=== PATIENT | female | born 1960 | race Caucasian/White ===

== ENCOUNTER → 2017-05-26 | Outpatient (CLI) | payer BC ==
--- NOTE | 2017-05-26 17:54 | Diagnostic Imaging Report ---
INDICATION: Left lower quadrant pain for six days, ankles and knees are swollen. COMPARISON STUDY: None. FINDINGS: Frontal and lateral views of the lumbar spine demonstrate no fracture or subluxation. Disc spaces are of normal width. Facet arthropathy is present at L4-L5 and L5-S1. There is questionable pars defect at L5 without subluxation. Increased stool is seen throughout the colon. IMPRESSION: 1. Constipation. 2. Facet arthropathy with a questionable pars defect at L5. No subluxation or disc space narrowing is present. Dictated by: Dictated on workstation # [id number]
--- NOTE | 2017-05-26 17:56 | Diagnostic Imaging Report ---
INDICATION: Left lower quadrant pain for six days, history of stones and hematuria. COMPARISON STUDIES: Lumbar spine from today. FINDINGS: A supine and upright view of the abdomen demonstrates the lung bases to be clear. A large amount stool is seen throughout the colon. Small bowel gas pattern appears normal. Surgical clips are seen in the gallbladder fossa. IMPRESSION: Constipation. Dictated by: Dictated on workstation # [id number]
[2017-05-26 18:00] LABS: BILIRUBIN,URINE NEGATIVE (NEGATIVE); CLARITY,URINE CLEAR; COLOR,URINE YELLOW; GLUCOSE, URINE (UA) NEGATIVE (NEGATIVE); KETONES,URINE NEGATIVE (NEGATIVE); LEUKOCYTE ESTERASE ,URINE NEGATIVE (NEGATIVE); NITRITE,URINE NEGATIVE (NEGATIVE); PH,URINE 6.5 (5-9); PROTEIN,URINE NEGATIVE (NEGATIVE); UROBILINOGEN,URINE NORMAL (NORMAL)
[2017-05-26 18:08] LABS: BACTERIA,URINE NEGATIVE /HPF
== END ==
LOC: RAD 17:18
PROVIDERS: ATTEND Physician Assistant
DX: K59.00 Constipation, unspecified (principal); M54.12 Radiculopathy, cervical region; M46.86 Other specified inflammatory spondylopathies, lumbar region
CPT/HCPCS: 72100; 74019; 81000

== ENCOUNTER → 2017-06-01 | Outpatient (CLI) | payer BC ==
--- NOTE | 2017-06-01 13:45 | Diagnostic Imaging Report ---
PROCEDURE: MRI lumbar spine. TECHNIQUE: Multiplanar, multisequence MRI of the lumbar spine was performed without contrast. INDICATION: Low back pain. FINDINGS: Lumbar spinal curvature and alignment are unremarkable. Vertebral body heights are maintained. There is desiccation of lumbar discs from L2-S1. Conus medullaris is unremarkable at the T12 level. There is asymmetric leftward bulging of the L2-3 disc resulting in slight left neural foraminal stenosis. At the L3-4 level, there is mild diffuse disc bulging which is mildly eccentric toward the left with slight left neural foraminal stenosis. At L4-5, there is also mild leftward bulging of the disc without significant spinal or neural foraminal stenosis. At L5-S1, mild disc bulging results in minimal left neural foraminal stenosis. IMPRESSION: There is asymmetric leftward bulging of the L2-3, L3-4 and L5-S1 disc resulting in minimal to mild left neural foraminal stenosis. No central spinal stenosis is identified. There is no evidence of marrow signal abnormality to indicate fracture or other acute abnormality. Dictated by: Dictated on workstation # [id number]
== END ==
LOC: RAD 10:49
PROVIDERS: ATTEND Physician Assistant
DX: M51.27 Other intervertebral disc displacement, lumbosacral region (principal)
CPT/HCPCS: 72148

== ENCOUNTER → 2018-11-10 | Outpatient (CLI) | payer BC ==
--- NOTE | 2018-11-15 18:38 | Diagnostic Imaging Report ---
INDICATION: Routine screening. Comparison is made with prior mammograms from 06/01/2017 and 03/25/2016. 2-D and 3-D bilateral screening mammography was performed. The current study was also evaluated with a Computer Aided Detection (CAD) system. 3-D tomosynthesis was also performed and reviewed. FINDINGS: Both breasts are heterogeneously dense, limiting the sensitivity of mammography. There is a density in the posterior right breast on the MLO view. No corresponding density on the CC view is seen. Additional views are recommended. There also is some slight increased density in the medial aspect of the left breast retroareolar region on the CC view. Additional views of this area are recommended as well. No suspicious calcifications are identified. Axillae are unremarkable. IMPRESSION: Bilateral breast densities. Additional views are recommended for further evaluation. ACR BI-RADS Category 0: Incomplete. (Needs additional imaging evaluation). Result letter will be mailed to the patient. Note: At least 10% of breast cancer is not imaged by mammography. Dictated by: Dictated on workstation # [id number]
== END ==
LOC: RAD 09:40
PROVIDERS: ATTEND Obstetrics & Gynecology
DX: Z12.31 Encounter for screening mammogram for malignant neoplasm of breast (principal)
CPT/HCPCS: 77067

== ENCOUNTER 2020-02-05 05:37 | Outpatient (RCR) | payer BC ==
[~2020-02-05] VITALS: Ht 165 cm; Wt 61.3 kg
[2020-02-05] MEDS ORDERED: SPIR50TA4 PO (11:18)
[2020-02-05] MEDS ORDERED: THYR60TA2 PO (11:18)
[2020-02-05] MEDS ORDERED: POTA10CA43 PO (11:18)
[2020-02-05] MEDS ORDERED: ACYC400T PO (11:18)
[2020-02-05] MEDS ORDERED: MELA10TA2 PO (11:18)
[2020-02-05] MEDS ORDERED: TOPI50TA13 PO (11:18)
[2020-02-05] MEDS ORDERED: ESTR2TAB PO (11:18)
== END 2020-02-05 12:54 | disposition home or self-care (01) ==
LOC: PREOP 05:37
PROVIDERS: ATTEND Urology
DX: Z01.818 Encounter for other preprocedural examination (principal)

== ENCOUNTER → 2020-02-05 | Outpatient (CLI) | payer BC ==
[~2020-02-05] MED LIST: ACYC400T PO; ESTR2TAB PO; MELA10TA2 PO; POTA10CA43 PO; SPIR50TA4 PO; THYR60TA2 PO; TOPI50TA13 PO
== END ==
LOC: LABNPT 06:03
PROVIDERS: ATTEND Urology
DX: Z01.812 Encounter for preprocedural laboratory examination (principal); Z53.9 Procedure and treatment not carried out, unspecified reason

== ENCOUNTER 2020-02-12 06:37 | Day surgery (SDC) | payer BC ==
[~2020-02-12] VITALS: Ht 165 cm; Wt 61.3 kg
[2020-02-12] VITALS (10 sets, daily range): BP systolic 96–127; BP diastolic 59–92
[2020-02-12] MEDS ORDERED: LIDOCAINE/EPI 1%-1:100,000 (XYLOCAINE) 20ML ONE (07:18)
[2020-02-12] MEDS ORDERED: ESTRADIOL VAGINAL CREAM 42.5 GM (ESTRACE) VG ONE (07:18)
[2020-02-12] MEDS ORDERED: proPOfol 200 MG/20 ML (DIPRIVAN) VIAL IV ONE (07:30)
[2020-02-12] MEDS ORDERED: MIDAZOLAM 2 MG/2 ML (VERSED) VIAL ONE (07:30)
[2020-02-12] MEDS ORDERED: cefTRIAXone FOR IV USE 1,000 MG in WATER (STERILE) FOR INJECTION 10 ML IV ONE (07:30)
[2020-02-12] MEDS ORDERED: LIDOCAINE PF 2% 5 ML (XYLOCAINE) VIAL ONE (07:30)
[2020-02-12] MEDS ORDERED: fentaNYL INJECTION 100 MCG/2 ML AMP ONE (07:30)
[2020-02-12] MEDS ORDERED: ROCURONIUM 10 MG/ML 5 ML SYRINGE IV ONE (07:37)
[2020-02-12] MEDS ORDERED: SEVOFLURANE (ULTANE) 15 ML INHAL SOLN ONE (07:37)
[2020-02-12] MEDS ORDERED: ONDANSETRON 4 MG/2 ML (SDV) Z0FRAN ONE (07:37)
--- NOTE | 2020-02-12 08:00 | Progress Note-Pre Operative ---
Pre-Operative Progress Note H&P Reviewed The H&P was reviewed, patient examined and no changes noted. Date Seen by Provider: Feb 12, 2020 Time Seen by Provider: 08:00 Date H&P Reviewed: Feb 12, 2020 Time H&P Reviewed: 08:00 Pre-Operative Diagnosis: CYSTOCELE AND SARINA JOCELYN ARAIZA MD Feb 12, 2020 08:00
[2020-02-12] MEDS: LACTATED RINGERS 1,000 ML IV PRN ×3 (08:02→15:42)
[2020-02-12] MEDS ORDERED: LACTATED RINGERS 1,000 ML IV SCH (08:04)
--- NOTE | 2020-02-12 08:04 | Progress Note-Post Operative ---
Post-Operative Progess Note Surgeon (s)/Painter Maintenance (s) Surgeon JOCELYN ARAIZA MD Painter Maintenance: NONE Pre-Operative Diagnosis CYSTOCELE AND SARINA Post-Operative Diagnosis SAME Procedure & Operative Findings Date of Procedure 02/12/20 Procedure Performed/Findings ANTERIOR REPAIR AND PVS WITH CYSTOSCOPY Anesthesia Type GENERAL Estimated Blood Loss Estimated blood loss (mL): LESS THAN 50CC Specimens/Packing Specimens Removed NONE Packing: ESTRACE 2GM VAGINAL PACK JOCELYN ARAIZA MD Feb 12, 2020 08:04
[2020-02-12] MEDS ORDERED: MEPERIDINE (DEMEROL) INJ 50 MG/ML IVP ONE (08:30)
[2020-02-12] MEDS ORDERED: morphine INJ 10 MG/ML 1ML (SYR OR VIAL) IVP ONE (08:30)
[2020-02-12] MEDS ORDERED: fentaNYL INJECTION 100 MCG/2 ML AMP IVP ONE (08:30)
--- NOTE | 2020-02-12 09:55 | NUR ---
HECTOR HWANG admitted to room 3306-1 VIA PT BED ACC BY HAYDEE BUCKLEY ENVIRONMENTAL HEALTH TECHNOLOGIST AFTER AN ANTERIOR REPAIR WITH PUBOVAGINAL SLING, AND CYSTOSCOPY TODAY BY DR. ARAIZA. HECTOR HWANG introduced to surroundings, call light, bed controls, phone, TV, temperature control, lights, meal times, smoking policy, visitor policy, side rail policy, bathrooms and showers. Patient Rights given to patient in the handbook.
--- NOTE | 2020-02-12 10:10 | NUR ---
ASSESSMENT COMPLETED. VSS. DENIES PAIN. VAGINAL PACK IN PLACE WITH TAIL VISIBLE. NO BLEEDING AT THIS TIME. ORIENTED TO CALL LIGHT OPERATION AND MENU.
[2020-02-12] MEDS: ONDANSETRON 4 MG/2 ML (SDV) Z0FRAN IVP PRN ×2 (10:15→23:51)
[2020-02-12] MEDS ORDERED: KETOROLAC 30 MG/ML VIAL ONE (11:18)
[2020-02-12] MEDS: KETOROLAC 30 MG/ML VIAL IV PRN ×2 (11:25→17:13)
--- NOTE | 2020-02-12 11:54 | OPERATIVE REPORT ---
DATE OF SERVICE: 02/12/2020 PREOPERATIVE DIAGNOSIS: Cystocele with stress urinary incontinence. POSTOPERATIVE DIAGNOSIS: Cystocele with stress urinary incontinence. OPERATION PERFORMED: Anterior repair with pubovaginal sling and cystoscopy. SURGEON: Alfredo Araiza MD. ANESTHESIA: General. COMPLICATIONS: None. DESCRIPTION OF PROCEDURE: Under satisfactory general anesthesia, the patient in extended lithotomy position genitalia, abdomen and thigh were prepped and draped in the usual sterile fashion with a separate vaginal prep. The Powell catheter was inserted draining the bladder and connected to gravity. The anterior vaginal wall was infiltrated with lidocaine and 2% epinephrine and a midline incision was made just a centimeter proximal to the urethral meatus and carried down. The mucosa was dissected off the underlying fascia. The fascia was approximated with interrupted 2-0 Vicryl. Then, the [employer] One introducer was used and I went under the ischial pubic ramus and released the anchor into the obturator internus muscle using the described technique. In a similar fashion, I inserted the one on the right side. The sling was sitting nicely under the mid urethra with no tension, no twist and passage of a curved hemostat easily between it and the underlying tissue. I removed the Powell catheter and performed cystoscopy to confirm the integrity of the bladder, ureteral orifices and urethra with no foreign body and presence of the sling under the mid urethra. I left the bladder half full, removed the cystoscope and performed a manual Valsalva maneuver that was negative. I reinserted the Powell catheter draining again clear fluid. The excess vaginal mucosa was sharply excised and then the edges were approximated with a running 2-0 Vicryl Rapide type suture. Two grams Estrace vaginal pack was inserted. Estimated blood loss was less than 50 mL, none of which was replaced. Needle, sponge, instrument count correct x2. The patient tolerated the procedure and anesthesia well and was sent to recovery room in a stable condition. Job ID: [id number] DocumentID: [id number] Dictated Date: 02/12/2020 09:03:24 [place] Senior Specialist Date: 02/12/2020 11:54:06 Dictated By: ALFREDO ARAIZA MD [facility]
--- NOTE | 2020-02-12 12:00 | NUR ---
HAVING TO MANIPULATE CATHETER TO DRAIN BETTER. CATHETER DEVICE REPLACED.
[2020-02-12] MEDS: THYROID (ARMOUR) 60 MG TABLET PO SCH (12:51)
[2020-02-12] MEDS: KCL 10 MEQ TAB (MICRO K) PO SCH (12:51)
[2020-02-12] MEDS: ACYCLOVIR 400 MG TABLET (ZOVIRAX) PO SCH ×2 (12:52→21:54)
[2020-02-12] MEDS: ESTRADIOL 1 MG TAB (ESTRACE) PO SCH (12:52)
--- NOTE | 2020-02-12 13:06 | NUR ---
ULTRAM 50 MG P.O. FOR C/O PELVIC PAIN/PRESSURE.
[2020-02-12] MEDS: SPIRONOLACTONE 25 MG (ALDACTONE) TAB PO SCH (13:12)
[2020-02-12] MEDS: toPIRamate 25 MG (TOPAMAX) TAB PO SCH ×2 (13:12→21:54)
--- NOTE | 2020-02-12 16:00 | NUR ---
GOOD URINE OUTPUT. TAKING P.O. FLUIDS WELL.
--- NOTE | 2020-02-12 18:15 | NUR ---
ASSISTED UP TO THE SIDE OF THE BED. THIGH SCDS OFF. PT PERSPIRING. DOING WELL. STATES STANDING AT SIDE OF BED FELT BETTER FAR PELVIC PRESSURE.
[2020-02-12] MEDS ORDERED: MELATONIN 10 MG TABLET PO SCH (21:00)
[2020-02-13] MEDS: KETOROLAC 30 MG/ML VIAL IV PRN ×2 (00:39→05:48)
[2020-02-13] MEDS: THYROID (ARMOUR) 60 MG TABLET PO SCH (05:48)
[2020-02-13 05:55] VITALS: BP 110/67
--- NOTE | 2020-02-13 06:59 | Anesthesia-General Post-Op ---
General Patient Condition Mental Status/LOC: Same as Preop Cardiovascular: Satisfactory Nausea/Vomiting: Absent Respiratory: Satisfactory Pain: Controlled Complications: Absent Post Op Complications Complications None Follow Up Care/Instructions Patient Instructions None needed. Anesthesia/Patient Condition Patient Condition Patient is doing well, no complaints, stable vital signs, no apparent adverse anesthesia problems. No complications reported per nursing. D/C home per [facility] Criteria: Yes ALFONSO IRBY CRNA Feb 13, 2020 06:59
[2020-02-13] MEDS ORDERED: LEVOFLOXACIN 250 MG/50 ML IVPB 50 ML IV SCH (08:04)
[2020-02-13 08:45] VITALS: BP 108/60
--- NOTE | 2020-02-13 08:45 | NUR ---
A.M. ASSESSMENT COMPLETED. VSS. DR. ARAIZA IN TO SEE PT. PLAN FOR DISCHARGE.
[2020-02-13] MEDS: ACYCLOVIR 400 MG TABLET (ZOVIRAX) PO SCH (09:08)
[2020-02-13] MEDS: ESTRADIOL 1 MG TAB (ESTRACE) PO SCH (09:08)
[2020-02-13] MEDS: SPIRONOLACTONE 25 MG (ALDACTONE) TAB PO SCH (09:08)
[2020-02-13] MEDS: KCL 10 MEQ TAB (MICRO K) PO SCH (09:08)
[2020-02-13] MEDS: toPIRamate 25 MG (TOPAMAX) TAB PO SCH (09:08)
--- NOTE | 2020-02-13 09:10 | Progress Note - Urology ---
Progress Note-Urology Progress Notes/Assess & Plan Progress/Assessment & Plan DOING WELL POSTOP. NO COMPLAINTS. DAS OUT. HAS NOT VOIDED YET. DRY. HAPPY Final Diagnosis INCONTINENCE AND CYSTOCELE JOCELYN ARAIZA MD Feb 13, 2020 09:10
--- NOTE | 2020-02-13 09:13 | Discharge Inst-Urology ---
Discharge Inst-Urology Reconcile Patient Problems Problems Reviewed?: Yes Final Diagnosis CYSTOCELE AND SARINA Patient Instructions/Follow Up Plan/Assessment/Instructions Please make appointment to been seen in office in 2 weeks. REST till then Keep bowels soft and moving Showers, no bath Increase oral fluids for 48 hours and then as needed. Diet as tolerated. If questions or concerns contact your physician Or seek help at emergency department. JOCELYN ARAIZA MD Feb 13, 2020 09:13
--- NOTE | 2020-02-13 10:54 | NUR ---
DR. ARAIZA NOTIFIED OF BLADDER SCAN OF 21 MLS AFTER 100 ML VOID. PLAN FOR DISCHARGE.
[2020-02-13] MEDS ORDERED: TRM50T PO (11:13)
[2020-02-13] MEDS ORDERED: NITR-65 PO (11:13)
--- NOTE | 2020-02-13 11:30 | NUR ---
DISCHARGE INSTRUCTIONS REVIEWED WITH COPY TO PT. STATES UNDERSTANDING OF ALL INSTRUCTIONS AND NEED TO F/U SCHEDULED AND NEEDED.
[2020-02-13 11:45] VITALS: BP 108/60
--- NOTE | 2020-02-13 11:45 | NUR ---
DISMISSED AMB FROM [facility] IN STABLE CONDITION TO AWAITING FAMILY CAR ACC BY JENNY MONTE RN.
== END 2020-02-13 11:45 | disposition home or self-care (01) ==
LOC: SDC 06:37 → WS 09:52 → SDC 02-13 11:45
PROVIDERS: ATTEND Urology
DX: N81.10 Cystocele, unspecified (principal); N39.3 Stress incontinence (female) (male); E03.9 Hypothyroidism, unspecified; K21.9 Gastro-esophageal reflux disease without esophagitis; K58.9 Irritable bowel syndrome, unspecified; Z79.899 Other long term (current) drug therapy
CPT/HCPCS: 87081; 94664

== ENCOUNTER → 2020-09-16 | Outpatient (CLI) | payer BC ==
[~2020-09-16] MED LIST changes: -ACYC400T PO; +ACYC400T21 PO; +NITR-65 PO; +TRM50T PO
== END ==
LOC: RAD 08:45
PROVIDERS: ATTEND Obstetrics & Gynecology
DX: Z12.31 Encounter for screening mammogram for malignant neoplasm of breast (principal)
CPT/HCPCS: 77063; 77067

== ENCOUNTER → 2021-10-21 | Outpatient (CLI) | payer OTHER ==
[~2021-10-21] MED LIST changes: -ESTR2TAB PO; +ESTR2TAB3 PO
--- NOTE | 2021-10-21 10:56 | Diagnostic Imaging Report ---
EXAMINATION: Lumbar spine MRI without contrast from 10/21/2021. TECHNIQUE: Multiplanar, multisequence MRI of the lumbar spine was performed without contrast. INDICATION: Low back pain with radiation into the left leg. Left leg numbness x3 weeks. No specific injuries. COMPARISON: 06/01/2017. FINDINGS: There is normal height and alignment of the vertebral bodies. Tip of the conus is unremarkable in appearance and location. L1-L2: There is bilateral facet hypertrophy. No central stenosis. Neural foramina are patent. L2-L3: There is a prominent left paracentral disc extrusion with disc material extending inferiorly along the posterior left border of the L3 vertebral body. This extends into the left lateral recess, likely encroaching upon the transiting left nerve root. This finding is new since the previous examination. There is secondary mild central stenosis. There is bilateral facet hypertrophy. There is moderate left and [id number] right neural foraminal stenosis. L3-L4: There is intervertebral disc space narrowing and disc desiccation. There is bilateral facet and ligamentum flavum hypertrophy. There is a broad-based bulging disc, flattening the ventral thecal sac. No central stenosis. There is moderate left and mild right neural foraminal narrowing. L4-L5: There is intervertebral disc space narrowing and disc desiccation. There is bilateral facet and ligamentum flavum hypertrophy. There is a left paracentral broad-based bulging disc containing a left paracentral annular tear. There is no central narrowing. There is [id number]-lv-yxpqqvxa bilateral neural foraminal stenosis, left greater than right. L5-S1: There is bilateral facet hypertrophy. There is a left paracentral disc protrusion. This extends towards the left neural foramen abutting the exiting left nerve root. Encroachment is not excluded. There is moderate left neural foraminal narrowing. The right neural foramen and central canal are patent. Visualized intra-abdominal structures are unremarkable. IMPRESSION: 1. New left paracentral large disc extrusion at the L2-L3 level, likely encroaching upon the transiting left nerve root. There is secondary mild central stenosis with [id number]-zr-phrmty left neural foraminal narrowing. Other degenerative findings, as detailed above. Dictated by: Dictated on workstation # [id number]
== END ==
LOC: RAD 08:00
PROVIDERS: ATTEND Physician Assistant
DX: M51.36 Other intervertebral disc degeneration, lumbar region (principal); M48.061 Spinal stenosis, lumbar region without neurogenic claudication
CPT/HCPCS: 72148

== ENCOUNTER 2021-10-28 20:53 | Emergency (ER) | payer OTHER ==
[~2021-10-28] VITALS: Ht 165.1 cm; Wt 77.0 kg
[2021-10-28] MEDS ORDERED: KETOROLAC 30 MG/ML VIAL IM ONE (21:15)
[2021-10-28] MEDS ORDERED: ORPHENADRINE 60 MG/2 ML (NORFLEX) AMP (ED ONLY) IM ONE (21:15)
--- NOTE | 2021-10-28 21:15 | ED Back Pain ---
General Chief Complaint: Back Problems Stated Complaint: BACK PAIN Nursing Triage Note: PT AMB TO ED BY POV WITH C/O LOW BACK AND L LEG PAIN X 3 WKS, REPORTS PAIN 10/10 AND NUMBNESS IN LLE. DENIES INJURY AND REPORTS PAIN HAS INCREASED GRADUALLY OVER 3 WKS. PT HAS SEEN DR. FARR AND HAD MRI DONE LAST WEEK, IS SUPPOSED TO FOLLOW UP WITH NEURO. Source of Information: Patient Exam Limitations: No Limitations History of Present Illness Date Seen by Provider: Oct 28, 2021 Time Seen by Provider: 21:14 Initial Comments Patient is a 60-year-old female who presents the ED with low back pain and left leg pain. She reports a pain that radiates to her left knee over the past 2 weeks. She gets intermittent sharp shooting pain to her toes over the past 3 weeks. No fall. She had an outpatient MRI 2 days ago prescribed by her primary care physician Dr. Patterson that was positive for new left paracentral large disc extrusion at the L2-L3 level likely encroaching upon the transitioning left nerve root. Secondary mild central stenosis with moderate to severe left neural foraminal narrowing. She is currently on treatment tramadol and lidocaine patch, Zanaflex without much improvement. She denies of any bowel or urine incontinence or saddle paresthesia. She is currently working on following up with neurosurgery. She is requesting pain management at this time. Denies of any fever, weight loss, drug use, nausea, vomiting, diarrhea or fever. Allergies and Home Medications Allergies Coded Allergies: No Known Drug Allergies (Unverified , 02/05/20) Patient Home Medication List Home Medication List Reviewed: Yes Acyclovir (Acyclovir) 400 Mg Tablet, 400 MG PO BID, (Reported) Entered as Reported by: DONIS REID on 02/05/20 1118 Estradiol (Estradiol Tablet) 2 Mg Tablet, 2 MG PO DAILY, (Reported) Entered as Reported by: DONIS REID on 02/05/20 1118 Hydrocodone/Acetaminophen (Hydrocodone-Acetamin 7.5-325) 7.5 Mg-325 Mg Tablet, 1 EACH PO Q4H Prescribed by: JAME PIERRE on 10/28/21 2241 Melatonin (Melatonin) 10 Mg Tablet, 10 MG PO DAILY, (Reported) Entered as Reported by: DONIS REID on 02/05/20 111 Methylprednisolone (Medrol Dose pack) 4 Mg Tab, 4 MG PO UD Prescribed by: JAME PIERRE on 10/28/212240 Nitrofurantoin Monohyd/M-Cryst (Macrobid 100 mg Capsule) 100 Mg Capsule, 1 TAB PO BID Prescribed by: JENNY MONTE on 02/13/20 111 Potassium Chloride (Potassium Chloride) 10 Meq Capsule.er, 10 MEQ PO DAILY, (Reported) Entered as Reported by: DONIS REID on 02/05/201117 Spironolactone (Spironolactone) 50 Mg Tablet, 50 MG PO DAILY, (Reported) Entered as Reported by: DONIS REID on 02/05/201117 Thyroid,Pork (Swan Thyroid) 60 Mg Tablet, 60 MG PO DAILY, (Reported) Entered as Reported by: DONIS REID on 02/05/201117 Topiramate (Topiramate) 50 Mg Tablet, 50 MG PO BID, (Reported) Entered as Reported by: DONIS REID on 02/05/201117 Tramadol HCl (Tramadol HCl) 50 Mg Tablet, 50 MG PO Q4H PRN for PAIN-MODERATE (5- 7) Prescribed by: JENNY MONTE on 02/13/201112 Review of Systems Constitutional: No chills, No diaphoresis, No malaise, No weakness EENTM: No ear pain, No blurred vision, No double vision, No mouth pain, No mouth swelling Respiratory: No cough, No dyspnea on exertion, No short of breath Cardiovascular: No chest pain Gastrointestinal: No abdominal pain, No nausea, No vomiting Musculoskeletal: back pain; No joint pain; muscle pain, muscle stiffness Skin: No change in color, No change in hair/nails All Other Systems Reviewed Negative Unless Noted: Yes Past Lhgqlve-Xqhjmo-Rokttv Hx Seasonal Allergies Seasonal Allergies: No Past Medical History Surgeries: Yes (ELBOW, CTR, THROAT NODULE, DENTAL, NASAL FX, LAP JIMMIE, ) Appendectomy, Gallbladder, Hysterectomy Respiratory: No Currently Using CPAP: No Currently Using BIPAP: No Cardiac: No 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 oz. kg; 28.00 BMI Method: General Appearance: No Apparent Distress, WD/WN HEENT: PERRL/EOMI, TMs Normal, Normal ENT Inspection, Pharynx Normal Neck: Full Range of Motion, Normal Inspection, Non Tender, Supple Cardiovascular: Regular Rate, Rhythm, No Edema, No Gallop, No JVD, No Murmur Respiratory: Chest Non Tender, Lungs Clear, Normal Breath Sounds, No Accessory Muscle Use, No Respiratory Distress Gastrointestinal: Normal Bowel Sounds, No Organomegaly, No Pulsatile Mass, Non Tender, Soft Extremity: Normal Capillary Refill, Non Tender, No Calf Tenderness, No Pedal Edema, Other (Cap refill less than 2 bilateral lower extremity. Dorsiflexion p lantarflexion strength 5 out of 5 bilateral legs. Positive straight leg raise left leg.) Neurologic/Psychiatric: Alert, Oriented x3, No Motor/Sensory Deficits, Normal Mood/Affect, history faculty member II-XII Norm as Tested Skin: Normal Color, Warm/Dry Progress/Results/Core Measures Results/Orders My Orders Orders - RAYMUNDO HALE Ketorolac Injection (Toradol Injection) (10/28/21 21:15) Orphenadrine Inj (Ed Only) (Norflex Inje (10/28/21 21:15) Hydrocodone/Apap 10/325 Tablet (Lortab 1 (10/28/21 21:13) Hydromorphone Injection (Dilaudid Inject (10/28/21 22:30) Rx-Hydrocodone/Apap 5-325 Mg (Rx-Vicodin (10/28/21 22:45) Medications Given in ED Vital Signs/I&O 10/28/21 10/28/21 21:00 22:49 Temp 36.7 Pulse 74 76 Resp 18 16 B/P (MAP) 147/91 (109) 123/80 Pulse Ox 100 100 O2 Delivery Room Air Room Air Blood Pressure Mean: 109 Departure Communication (PCP) Patient with moderate distress on arrival secondary to back pain and left leg pain. Had a MRI performed 2 days ago results New left paracentral large disc extrusion at the L2-L3 level, likely encroaching upon the transiting left nerve root. There is secondary mild central stenosis with treblruy-oi-fcieec left neural foraminal narrowing. Patient has no saddle paresthesia, bowel or urine incontinence. Has been taken tramadol and a muscle relaxer Zanaflex without much improvement. Patient is scheduled to follow-up with neurosurgery. Pain radiates to the left knee with numbness and tingling to the toes. Discussed options with patient. She is requesting pain control and she will follow-up with her primary and with further evaluation with neurosurgery. She was given oral and IM pain medication here with improving pain. Was given dose of IM dose of pain medication with significant provement. Patient able to ambulate. She states she feels much better. Discussed discharged with oral pain medication hydrocodone and not to take the tramadol with. Will discharge with Medrol Dosepak. Continue follow-up. If any worsening symptoms such as urine or bowel incontinence, saddle paresthesia to return back to ED Impression Primary Impression: Back pain Disposition: 01 HOME, SELF-CARE Condition: Stable Departure-Patient Inst. Decision time for Depature: 22:40 Referrals: KEITH LEYVA MD (PCP/Family) Primary Care Physician Patient Instructions: Low Back Pain (DC) Scripts Hydrocodone/Acetaminophen (Hydrocodone-Acetamin 7.5-325) 7.5 Mg-325 Mg Tablet 1 EACH PO Q4H, #10 TAB Prov: RAYMUNDO HALE 10/28/21 Methylprednisolone (Medrol Dose pack) 4 Mg Tab 4 MG PO UD for 6 Days, #21 TAB as directed per dose pack Prov: RAYMUNDO HALE 10/28/21 RAYMUNDO HALE Oct 28, 2021 21:15
[2021-10-28] MEDS ORDERED: HYDROmorphone 2 MG/ML VIAL (DILAUDID) IM ONE (22:30)
[2021-10-28] MEDS ORDERED: HYDR-3817 PO (22:41)
[2021-10-28] MEDS ORDERED: NF-METHYLP PO (22:41)
[2021-10-28 22:49] VITALS: BP 123/80
[2021-10-29] MEDS ORDERED: NF-METHYLP PO (20:31)
[2021-10-29] MEDS ORDERED: HYDR-3817 PO (20:31)
== END 2021-10-28 22:49 | disposition home or self-care (01) ==
LOC: EDUNIT# 20:53 → ER 20:54
DX: M54.50 Low back pain, unspecified (principal); M48.061 Spinal stenosis, lumbar region without neurogenic claudication
CPT/HCPCS: 99284